=== PATIENT | female | born 1955 | race American Indian/Alaskan Native ===

== ENCOUNTER 2019-01-19 21:22 | Emergency (ER) | payer BC, MEDICARE ==
[2019-01-19 21:54] VITALS: BMI 33.4
[2019-01-19 22:22] VITALS: TEMP 98.3
--- NOTE | 2019-01-19 23:23 | ED PDOC ---
Arrival/HPI - General Chief Complaint: Abnormal Skin Integrity Time Seen by Provider: 01/19/19 21:26 Historian: Patient - History of Present Illness Narrative History of Present Illness (Text): 01/20/19 01:59 63 yo F with h/o MS c/o oddly shaped lesions on her tongue x 1 month. Reports mild discomfort intermittently. Reports no pain now, no fever, no URI, no headache, no sore throat, no rash, no dysphagia. Reports that she saw her [employer] 2 weeks ago and was diagnosed with possible thrush and was treated with diflucan and nystatin with no improvement. Past Medical History - Cardiac Hx Hypertension: Yes - Pulmonary Hx Respiratory Disorders: No - Neurological Hx Multiple Sclerosis: Yes - HEENT Hx HEENT Disorder: No - Renal Hx Renal Disorder: No - Endocrine/Metabolic Hx Endocrine Disorders: No Hx Hypothyroidism: Yes - Integumentary Hx Dermatological Disorder: No - Musculoskeletal/Rheumatological Hx Musculoskeletal Disorders: No - Gastrointestinal Hx Gastrointestinal Disorders: No - Genitourinary/Gynecological Hx Genitourinary Disorders: No - Psychiatric Hx Psychophysiologic Disorder: No Hx Substance Use: No - Surgical History Hx Section: Yes - Anesthesia Hx Anesthesia: No Family/Social History Family/Social History: No Known Family HX Smoking Status: Never Smoked Hx Alcohol Use: No Hx Substance Use: No Allergies/Home Meds Allergies/Adverse Reactions: Allergies No Known Allergies Allergy (Verified 01/19/19 21:54) Home Medications: Home Meds Medication Instructions Recorded Confirmed Baclofen [Lioresal] 20 mg PO QID 01/19/19 01/19/19 Gabapentin [Neurontin] 300 mg PO TID 01/19/19 01/19/19 Ibuprofen [Motrin Tab] 600 mg PO Q8H PRN 01/19/19 01/19/19 Levothyroxine Sodium [Unithroid] 100 mcg PO DAILY 01/19/19 01/19/19 Ocrelizumab [Ocrevus] 1 01/19/19 amLODIPine [Norvasc] 5 mg PO DAILY 01/19/19 01/19/19 traMADol [Ultram] 50 mg PO BID 01/19/19 01/19/19 Review of Systems - Review of Systems Constitutional: absent: Fatigue, Fevers ENT: Other (lesions on tongue). absent: Sore Throat, Rhinorrhea, Sinus Congestion Respiratory: absent: SOB, Cough Gastrointestinal: absent: Nausea, Vomiting Musculoskeletal: absent: Arthralgias, Back Pain, Neck Pain Skin: absent: Rash, Skin Lesions Neurological: absent: Headache, Dizziness Physical Exam Vital Signs Temp Pulse Resp BP Pulse Ox 01/19/19 22:03 98.3 F 72 17 114/70 96 Temperature: Afebrile Blood Pressure: Normal Pulse: Regular Respiratory Rate: Normal Appearance: Positive for: Well-Appearing, Non-Toxic, Comfortable Pain Distress: None Mental Status: Positive for: Alert and Oriented X 3 - Systems Exam Head: Present: Atraumatic, Normocephalic Pupils: Present: PERRL Extroacular Muscles: Present: EOMI Conjunctiva: Present: Normal Ears: Present: Normal, NORMAL TM Mouth: Present: Moist Mucous Membranes, Other (+geographic tongue noted, no plaques, no thrush ) Pharnyx: Present: Normal. No: ERYTHEMA, EXUDATE Neck: Present: Normal Range of Motion. No: Meningeal Signs, Lymphadenopathy Respiratory/Chest: Present: Clear to Auscultation, Good Air Exchange. No: Respiratory Distress Cardiovascular: Present: Regular Rate and Rhythm, Normal S1, S2. No: Murmurs Neurological: Present: GCS=15, CN II-XII Intact, Speech Normal, Motor Func Grossly Intact, Normal Sensory Function Skin: Present: Warm, Dry, Normal Color. 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 Advised to follow up with pmd or ENT referral. Patient is stable for d/c. - PA / [employer] / Resident Statement / has reviewed & agrees with the documentation as recorded. Disposition/Present on Arrival - Present on Arrival Any Indicators Present on Arrival: No History of DVT/PE: No History of Uncontrolled Diabetes: No Urinary Catheter: No History of Decub. Ulcer: No History Surgical Site Infection Following: None - Disposition Have Diagnosis and Disposition been Completed?: Yes Diagnosis: Geographic tongue Disposition: HOME/ ROUTINE Disposition Time: 23:15 Patient Plan: Discharge Condition: STABLE Additional Instructions: Thank you for letting us take care of you today. You were treated for geographic tongue. The emergency medical care you received today was directed at your acute symptoms. Return to the Emergency Department if your symptoms worsen, do not improve, or if you have any other problems. Please contact your doctor in 2 days for re-evaluation and follow up / or call one of the physicians/clinics you have been referred to that are listed on the Patient Visit Information form that is included in your discharge packet. Bring any paperwork you were given at discharge with you along with any medications you are taking to your follow up visit. Our treatment cannot replace ongoing medical care by a primary care provider (PCP) outside of the emergency department. Thank you for allowing the [facility] team to be part of your care today. Referrals: Melita Christiansen MD [Primary Care Provider] - Follow up with primary Wilder Lara DO [Staff Provider] - Follow up with primary Forms: [employer] ([place]i)
[2019-01-20] VITALS: BP 115/82; PULSE 75; RESP 18; O2SAT 100
== END 2019-01-19 23:30 | disposition home or self-care (01) ==
LOC: ED 21:22
DX: K14.1 Geographic tongue (principal)